=== PATIENT | male | born 1975 | race Caucasian/White ===

== ENCOUNTER 2020-09-16 13:35 | Emergency (ER) | payer OTHER ==
[~2020-09-16] VITALS: Ht 172.7 cm; Wt 94.3 kg
[~2020-09-16 13:35] MED LIST: ACET325; ASPI325EC; CODACE30 PO; CYCL10 PO; HYDACE5; IBUP600 PO; OXYACE5T PO; PROACE100 PO; RXCODACET PO; SULTRIDS PO
[2020-09-16 14:07] LABS: BASOPHILS PERCENT AUTO 1 % (0-2); EOSINOPHILS ABSOLUTE AUTO 0.48 K/mm3 (0.00-0.68); EOSINOPHILS PERCENT AUTO 4 % (0-6); Hematocrit 46.4 % (37.0-53.0); Hemoglobin 15.9 g/dL (13.5-17.5); IMMATURE GRAN ABSOLUTE AUTO 0.11 K/mm3 (0.00-0.10); IMMATURE GRAN PERCENT AUTO 1 % (0-1); LYMPHOCYTES ABSOLUTE AUTO 3.35 K/mm3 (0.84-5.20); LYMPHOCYTES PERCENT AUTO 25 % (21-46); MONOCYTES ABSOLUTE AUTO 0.94 K/mm3 (0.16-1.47); MONOCYTES PERCENT AUTO 7 % (4-13); Mean Corpuscular HGB 31.7 pg (26.0-34.0); Mean Corpuscular HGB Conc 34.3 g/dL (31.5-36.5); Mean Corpuscular Volume 92 fL (80-100); Mean Platelet Volume 8.9 fL (9.1-12.4); NEUTROPHILS ABSOLUTE AUTO 8.22 K/mm3 (1.96-9.15); NEUTROPHILS PERCENT AUTO 62 % (41-73); Platelet Count 387 K/mm3 (150-400); RDW Coefficient Variation 13.3 % (11.7-14.2); RDW Standard Deviation 45.6 fL (35.1-46.3); Red Blood Cell Count 5.02 M/mm3 (4.30-5.90)
[2020-09-16 14:26] LABS: Alanine Aminotransfer (ALT/SGP 32 U/L (12-78); Albumin, Blood 4.3 g/dL (3.4-5.0); Albumin/Globulin Ratio 1.1 (0.8-1.8); Alk Phos 100 U/L (50-136); Anion Gap 6 mmol/L (6-16); Aspartate Aminotrans (AST/SGOT 22 U/L (12-37); Bilirubin, Total 0.6 mg/dL (0.1-1.0); Blood Urea Nitrogen 13 mg/dL (8-24); Bun/Creatinine Ratio 14.9 (12.0-20.0); CO2, Blood 26 mmol/L (21-32); Calcium, Blood 9.2 mg/dL (8.5-10.1); Chloride, Blood 106 mmol/L (98-108); Creatinine, Blood 0.88 mg/dL (0.60-1.20); Globulin, Blood 3.9 g/dL (2.2-4.0); Glomerular Filtration Rate >60 (60-); Glucose, Blood 98 mg/dL (70-99); Potassium, Blood 3.8 mmol/L (3.5-5.5); Sodium, Blood 138 mmol/L (136-145); Total Protein, Blood 8.2 g/dL (6.4-8.2); Troponin I <0.015 ng/mL (0.000-0.040)
[2020-09-16] MEDS ORDERED: [UNRECOGNIZED DRUG - REMARK] (14:35)
[2020-09-16] MEDS ORDERED: METO25ER PO (17:01)
[2020-09-16] MEDS ORDERED: Amoxicillin500 MG PO (17:01)
== END 2020-09-16 17:15 | disposition home or self-care (01) ==
LOC: ER 13:35
PROVIDERS: Physician Assistant
DX: I95.9 Hypotension, unspecified (principal); R07.9 Chest pain, unspecified; I10 Essential (primary) hypertension; F17.200 Nicotine dependence, unspecified, uncomplicated; Z88.6 Allergy status to analgesic agent; Z88.5 Allergy status to narcotic agent
CPT/HCPCS: 36415; 70450; 71046; 80053; 84484; 85025; 93005; 93010; 99284-25

== ENCOUNTER 2020-10-24 11:19 | Emergency (ER) | payer OTHER ==
[~2020-10-24] VITALS: Ht 172.7 cm; Wt 99.8 kg
[~2020-10-24 11:19] MED LIST changes: +Amoxicillin500 MG PO; +METO25ER PO; +[UNRECOGNIZED DRUG - REMARK]
[2020-10-24 12:15] LABS: Alanine Aminotransfer (ALT/SGP 26 U/L (12-78); Albumin, Blood 3.8 g/dL (3.4-5.0); Albumin/Globulin Ratio 1.1 (0.8-1.8); Alk Phos 80 U/L (50-136); Anion Gap 6 mmol/L (6-16); Aspartate Aminotrans (AST/SGOT 29 U/L (12-37); Bilirubin, Total 0.6 mg/dL (0.1-1.0); Blood Urea Nitrogen 10 mg/dL (8-24); Bun/Creatinine Ratio 14.1 (12.0-20.0); CO2, Blood 23 mmol/L (21-32); Calcium, Blood 8.8 mg/dL (8.5-10.1); Chloride, Blood 111 mmol/L (98-108); Creatinine, Blood 0.71 mg/dL (0.60-1.20); Globulin, Blood 3.4 g/dL (2.2-4.0); Glomerular Filtration Rate >60 (60-); Glucose, Blood 122 mg/dL (70-99); Potassium, Blood 4.3 mmol/L (3.5-5.5); Sodium, Blood 140 mmol/L (136-145); Total Protein, Blood 7.2 g/dL (6.4-8.2); Troponin I <0.015 ng/mL (0.000-0.040)
[2020-10-24 12:21] LABS: BASOPHILS ABSOLUTE AUTO 0.11 K/mm3 (0.00-0.23); BASOPHILS PERCENT AUTO 1 % (0-2); EOSINOPHILS ABSOLUTE AUTO 0.64 K/mm3 (0.00-0.68); EOSINOPHILS PERCENT AUTO 6 % (0-6); Hemoglobin 15.4 g/dL (13.5-17.5); IMMATURE GRAN ABSOLUTE AUTO 0.08 K/mm3 (0.00-0.10); IMMATURE GRAN PERCENT AUTO 1 % (0-1); LYMPHOCYTES ABSOLUTE AUTO 2.98 K/mm3 (0.84-5.20); LYMPHOCYTES PERCENT AUTO 29 % (21-46); MONOCYTES ABSOLUTE AUTO 0.62 K/mm3 (0.16-1.47); MONOCYTES PERCENT AUTO 6 % (4-13); Mean Corpuscular HGB 31.8 pg (26.0-34.0); Mean Corpuscular HGB Conc 34.2 g/dL (31.5-36.5); Mean Corpuscular Volume 93 fL (80-100); NEUTROPHILS PERCENT AUTO 58 % (41-73); NRBC ABSOLUTE 0.02 K/mm3 (0.00-0.02); NRBC Auto 0.2 /100 WBC (0.0-0.2); RDW Coefficient Variation 13.1 % (11.7-14.2); RDW Standard Deviation 45.1 fL (35.1-46.3); Red Blood Cell Count 4.84 M/mm3 (4.30-5.90); White Blood Cell Count 10.43 K/mm3 (4.00-11.30)
[2020-10-24 12:27] LABS: Mean Platelet Volume 10.5 fL (9.1-12.4)
[2020-10-24 12:50] LABS: Platelet Count 202 K/mm3 (150-400)
[2020-10-24] MEDS ORDERED: LISI20 PO (13:04)
[2020-10-24] MEDS ORDERED: OMEP20ER PO (13:05)
[2020-10-24] MEDS ORDERED: NAPR500 PO (13:05)
[2020-10-24] MEDS ORDERED: SUMA25 PO (13:05)
[2020-10-24] MEDS ORDERED: HYDCHL25 PO (14:19)
== END 2020-10-24 14:32 | disposition home or self-care (01) ==
LOC: ER 11:19
PROVIDERS: Physician Assistant
DX: I10 Essential (primary) hypertension (principal); F17.200 Nicotine dependence, unspecified, uncomplicated; Z79.899 Other long term (current) drug therapy; Z88.6 Allergy status to analgesic agent; Z88.5 Allergy status to narcotic agent
CPT/HCPCS: 36415; 71046; 80053; 84484; 85025; 93005; 93010; 99285-25

== ENCOUNTER 2022-04-26 12:55 | Emergency (ER) | payer OTHER ==
[~2022-04-26] VITALS: Ht 172.7 cm; Wt 104.3 kg
[~2022-04-26 12:55] MED LIST changes: +HYDCHL25 PO; +LISI20 PO; +NAPR500 PO; +OMEP20ER PO; +SUMA25 PO
[2022-04-26] MEDS ORDERED: CEPH500 PO (15:26)
== END 2022-04-26 16:00 | disposition home or self-care (01) ==
LOC: ER 12:55
DX: L02.13 Carbuncle of neck (principal); I10 Essential (primary) hypertension; F17.200 Nicotine dependence, unspecified, uncomplicated; Z88.5 Allergy status to narcotic agent; Z88.8 Allergy status to other drugs, medicaments and biological substances; Z79.899 Other long term (current) drug therapy
CPT/HCPCS: 99282

== ENCOUNTER 2023-11-17 11:14 | Emergency (ER) | payer OTHER ==
[~2023-11-17] VITALS: Ht 177.8 cm; Wt 99.8 kg
[~2023-11-17 11:14] MED LIST changes: +CEPH500 PO
[2023-11-17] MEDS ORDERED: Ondansetron HCl 2 MG / ML 2ML Vial IV ONE (11:50)
[2023-11-17] MEDS ORDERED: Ketorolac Tromethamine 30mg Vial IV ONE (11:50)
[2023-11-17] MEDS ORDERED: Morphine Sulfate 4 MG/1 ML Injection IV ONE (11:50)
[2023-11-17] MEDS ORDERED: Ipratropium/Albuterol SulF 2.5-0.5MG/3 ML Amp INH ONE (12:15)
[2023-11-17] MEDS ORDERED: OxyCODONE HCL 5 MG TAB PO ONE (14:35)
[2023-11-17 15:15] VITALS: BP 161/95
[2023-11-17] MEDS ORDERED: SILVADENE20 G1 TOP (15:23)
[2023-11-17] MEDS ORDERED: IBUP800 PO (15:23)
[2023-11-17] MEDS ORDERED: OXAYDO5 M1 PO (15:23)
== END 2023-11-17 15:41 | disposition home or self-care (01) ==
LOC: ER 11:14
DX: T21.21XA Burn of second degree of chest wall, initial encounter (principal); T22.241A Burn of second degree of right axilla, initial encounter; T22.221A Burn of second degree of right elbow, initial encounter; T21.24XA Burn of second degree of lower back, initial encounter; T20.20XA Burn of second degree of head, face, and neck, unspecified site, initial encounter; I10 Essential (primary) hypertension; F17.200 Nicotine dependence, unspecified, uncomplicated; Z79.899 Other long term (current) drug therapy; Z88.5 Allergy status to narcotic agent
CPT/HCPCS: 71045; 94640; 94664; 96374; 96375; 99284-25; A9270; J2270; J2405

== ENCOUNTER 2024-06-18 22:52 | Emergency (ER) | payer OTHER ==
[~2024-06-18] VITALS: Ht 172.7 cm; Wt 97.5 kg
[~2024-06-18 22:52] MED LIST changes: +IBUP800 PO; +OXAYDO5 M1 PO; +SILVADENE20 G1 TOP
[2024-06-18 22:58] VITALS: BP 147/96
[2024-06-19] MEDS ORDERED: Ketorolac Tromethamine 15mg Vial IM ONE (00:55)
[2024-06-19] MEDS ORDERED: Amoxicillin/Clavulanate K 875 MG Tab PO ONE (00:55)
[2024-06-19] MEDS ORDERED: RX Prepack 6 Tabs Oxycodone 5mg UD ONE (00:55)
[2024-06-19] MEDS ORDERED: OxyCODONE HCL 5 MG TAB PO ONE (00:55)
[2024-06-19] MEDS ORDERED: AMOCLA875 PO (00:56)
== END 2024-06-19 01:37 | disposition home or self-care (01) ==
LOC: ER 22:52
DX: S51.852A Open bite of left forearm, initial encounter (principal); W54.0XXA Bitten by dog, initial encounter; Z79.899 Other long term (current) drug therapy; Z88.5 Allergy status to narcotic agent
CPT/HCPCS: 73090; 96372; 99283-25; A9270; J1885

== ENCOUNTER → 2024-12-28 | Outpatient (CLI) | payer OTHER ==
[~2024-12-28] MED LIST changes: +AMOCLA875 PO
== END ==
LOC: LAB 12:19 → LAB SHORT 12:19
DX: L08.9 Local infection of the skin and subcutaneous tissue, unspecified (principal)
CPT/HCPCS: 87070; 87205

== ENCOUNTER → 2025-01-03 | Outpatient (CLI) | payer OTHER | LOC: LAB 11:00 → LAB SHORT 11:00 | DX: B36.9 Superficial mycosis, unspecified (principal); H62.40 Otitis externa in other diseases classified elsewhere, unspecified ear; L72.3 Sebaceous cyst | CPT/HCPCS: 87070; 87077; 87106; 87186; 87205 ==

== ENCOUNTER 2025-02-01 16:49 | Emergency (ER) | payer OTHER ==
[~2025-02-01] VITALS: Ht 172.7 cm; Wt 81.7 kg
[2025-02-01 17:20] LABS: BASOPHILS ABSOLUTE AUTO 0.08 K/mm3 (0.00-0.23); BASOPHILS PERCENT AUTO 1 % (0-2); EOSINOPHILS ABSOLUTE AUTO 0.39 K/mm3 (0.00-0.68); EOSINOPHILS PERCENT AUTO 4 % (0-6); Hematocrit 40.8 % (37.0-53.0); Hemoglobin 13.8 g/dL (13.5-17.5); IMMATURE GRAN ABSOLUTE AUTO 0.05 K/mm3 (0.00-0.10); IMMATURE GRAN PERCENT AUTO 0 % (0-1); LYMPHOCYTES ABSOLUTE AUTO 3.45 K/mm3 (0.84-5.20); LYMPHOCYTES PERCENT AUTO 31 % (21-46); MONOCYTES ABSOLUTE AUTO 0.74 K/mm3 (0.16-1.47); MONOCYTES PERCENT AUTO 7 % (4-13); Mean Corpuscular HGB Conc 33.8 g/dL (31.5-36.5); Mean Corpuscular Volume 93 fL (80-100); NEUTROPHILS ABSOLUTE AUTO 6.42 K/mm3 (1.96-9.15); NEUTROPHILS PERCENT AUTO 58 % (41-73); NRBC ABSOLUTE 0.00 K/mm3 (0.00-0.02); NRBC Auto 0.0 /100 WBC (0.0-0.2); Platelet Count 358 K/mm3 (150-400); RDW Coefficient Variation 13.8 % (11.7-14.2); RDW Standard Deviation 47.2 fL (35.1-46.3)
[2025-02-01 17:45] LABS: Alanine Aminotransfer (ALT/SGP 23.0 U/L (12-78); Albumin, Blood 3.8 g/dL (3.4-5.0); Albumin/Globulin Ratio 1.2 (0.8-1.8); Anion Gap 6.0 mmol/L (3-11); Aspartate Aminotrans (AST/SGOT 15.0 U/L (12-37); Bilirubin, Total 0.4 mg/dL (0.1-1.0); Blood Urea Nitrogen 14.0 mg/dL (8-24); CO2, Blood 28.0 mmol/L (21-32); Calcium, Blood 8.8 mg/dL (8.5-10.1); Chloride, Blood 109.0 mmol/L (98-108); Creatinine, Blood 0.8 mg/dL (0.60-1.20); Globulin, Blood 3.3 g/dL (2.2-4.0); Glucose, Blood 109.0 mg/dL (70-99); Potassium, Blood 3.6 mmol/L (3.5-5.5); Sodium, Blood 139.0 mmol/L (136-145); Total Protein, Blood 7.1 g/dL (6.4-8.2)
[2025-02-01] MEDS ORDERED: ALBU90OI INH (19:59)
[2025-02-01] MEDS ORDERED: Flonase 0.05% N16 GM (19:59)
[2025-02-01 22:00] VITALS: BP 147/105
[2025-02-01] MEDS ORDERED: CIPR500 PO (22:49)
[2025-02-05] MEDS ORDERED: AMOCLA875 PO (07:57)
== END 2025-02-01 23:00 | disposition home or self-care (01) ==
LOC: ER 16:49
PROVIDERS: Student in an Organized Health Care Education/Training Program
DX: H60.92 Unspecified otitis externa, left ear (principal); I10 Essential (primary) hypertension; F17.200 Nicotine dependence, unspecified, uncomplicated
CPT/HCPCS: 70487; 80053; 85025; 99283-25; A9270; Q9967

== ENCOUNTER 2025-02-04 10:47 | Emergency (ER) | payer OTHER ==
[~2025-02-04] VITALS: Ht 172.7 cm; Wt 95.2 kg
[~2025-02-04 10:47] MED LIST changes: +ALBU90OI INH; +CIPR500 PO; +Flonase 0.05% N16 GM
[2025-02-04 11:04] VITALS: BP 142/91
[2025-02-04] MEDS ORDERED: CEFIXIME400 MG PO (11:31)
[2025-02-04] MEDS ORDERED: DELTASONE20 MG PO (11:31)
[2025-02-05] MEDS ORDERED: AMOCLA875 PO (07:57)
== END 2025-02-04 11:32 | disposition home or self-care (01) ==
LOC: ER 10:47
DX: L27.1 Localized skin eruption due to drugs and medicaments taken internally (principal); T36.8X5A Adverse effect of other systemic antibiotics, initial encounter; H60.92 Unspecified otitis externa, left ear; I10 Essential (primary) hypertension; F17.200 Nicotine dependence, unspecified, uncomplicated; Z88.5 Allergy status to narcotic agent; Z79.899 Other long term (current) drug therapy
CPT/HCPCS: 99283